=== PATIENT | female | born 1990 | race American Indian/Alaskan Native ===

== ENCOUNTER 2020-12-29 12:33 | Emergency (ER) | payer SELFPAY ==
[2020-12-29] MEDS ORDERED: NALOXONE 2 MG/2 ML INJ ONE (12:39)
[2020-12-29] MEDS ORDERED: NALOXONE 0.4 MG/1 ML INJ IV ONE (12:40)
[2020-12-29 13:03] LABS: Basophils % (Auto) 0.6 % (0.0-1.8); Eosinophils % (Auto) 0.6 % (0.0-4.3); Hematocrit 40.9 % (30.3-42.9); Hemoglobin 13.7 gm/dl (10.1-14.3); Lymphocytes # (Auto) 1.9 K/mm3 (1.2-5.4); Lymphocytes % (Auto) 32.4 % (13.4-35.0); Mean Corpuscular HGB Conc 34 % (30-34); Mean Corpuscular Volume 91 fl (79-97); Monocytes # (Auto) 0.4 K/mm3 (0.0-0.8); Monocytes % (Auto) 6.1 % (0.0-7.3); Platelet Count 214 K/mm3 (140-440); Red Cell Distribution Width 14.5 % (13.2-15.2)
--- NOTE | 2020-12-29 13:05 | Cat Scan Report ---
CT head/brain wo con INDICATION: CODE STROKE PLEASE CALL ER MAIN AT 6023 Stroke symptoms. TECHNIQUE: Routine CT head. All CT scans at this location are performed using CT dose reduction for A LOVELY by means of automated exposure control. COMPARISON: None. FINDINGS: Intracranial: Encinas-white matter differentiation is maintained. No intracranial hemorrhage. No extra a xial collection. No hydrocephalus. No herniation. Sinuses: Paranasal sinuses and mastoid air cells are essentially clear. Orbits: Globes are intact. Calvarium: No acute fracture. IMPRESSION: 1. No evidence of acute infarction. Signer Name: Jaleel Price MD Signed: 12/29/2020 1:01 PM Workstation Name: [id number]
--- NOTE | 2020-12-29 13:07 | Emergency Department Report ---
HPI - General Chief Complaint: Altered Mental Status Time Seen by Provider: 12/29/20 12:43 - HPI HPI: 30-year-old -Faroese female presents to the emergency department for evaluation of being unresponsive. The patient's brought her in and is currently at bedside. Apparently the patient left their home last night around 8 PM saying that she was going over to a family member's home. The spoke to the family member and the patient never arrived there. Later in the evening the patient called her saying that she was laying on the floor of the family van, but did not tell him where she actually was. was able to eventually locate her and the Van using GPS and found her sweating, unresponsive, on the floor of their van in [place]. He pulled her into his car and drove her to the emergency department. She was immediately brought back to room #19 for evaluation. The patient is arousable, but goes right back to sleep if not continuously stimulated. She is a poor historian. The patient had a normal Accu-Chek here and was given 2 mg of Narcan without any change. The patient's says that the patient does not have any past medical history. She recently celebrated her 30th birthday and appeared in good spirits. No history of depression. No history of illicit drug use. ED Past Medical Hx - Social History Smoking Status: Never Smoker Substance Use Type: None ED Review of Systems ROS: Stated complaint: SYNCOPE Other details as noted in HPI Comment: Unobtainable due to pts medical conditions Physical Exam - Physical Exam Vital Signs: Vital Signs 12/29/20 12:45 Temperature 98.6 F Pulse Rate 85 Respiratory 16 Rate Blood Pressure 154/86 [Right] O2 Sat by Pulse 98 Oximetry Physical Exam: GENERAL: The patient is well-developed well-nourished. HENT: Normocephalic. Atraumatic. Patient has moist mucous membranes. EYES: Pupils equal reactive to light bilaterally. NECK: Supple. Trachea is midline. CHEST/LUNGS: Clear to auscultation. There is no respiratory distress noted. HEART/CARDIOVASCULAR: Regular. There is no tachycardia. There is no murmur. ABDOMEN: Abdomen is soft, nontender. Patient has normal bowel sounds. There is no abdominal distention. SKIN: Skin is warm and dry. NEURO: The patient is sleepy but is arousable. Once awake the patient is oriented, AAO x3. She does right back to sleep if not continuously stimulated. The patient is not moving any of her extremities but unknown if this is a neurological deficit versus effort. MUSCULOSKELETAL: There is no tenderness or deformity. ED Course Vital Signs 12/29/20 12:45 Temperature 98.6 F Pulse Rate 85 Respiratory 16 Rate Blood Pressure 154/86 [Right] O2 Sat by Pulse 98 Oximetry - Reevaluation(s) Reevaluation #1: 12/29/20 13:06 The patient is arousable and was able to tell me that the year is 2020. She answers some questions. When I attempted to assess her for neurological deficits, the patient is not moving her extremities but saying that she is "trying" to do so. A code stroke has been initiated. - Consultations Consultation #1: 12/29/20 13:47 Patient was seen by the telemedicine neurologist, Dr. Montenegro. Her full recommendations will be listed in the chart under her consultation. She agrees with the plan for CT angiography of the head and neck. If a thrombus is found the patient will need to be transferred out for neurosurgical intervention. If no thrombus or significant stenosis found, the patient should be admitted for MRI and inpatient neurology work-up. ED Medical Decision Making - Lab Data Result diagrams: 12/29/20 12:47 12/29/20 12:47 Lab Results 12/29/20 12/29/20 12/29/20 Range/Units 12:43 12:47 12:47 WBC 6.0 (4.5-11.0) K/mm3 RBC 4.50 (3.65-5.03) M/mm3 Hgb 13.7 (10.1-14.3) gm/dl Hct 40.9 (30.3-42.9) % MCV 91 (79-97) fl MCH 31 (28-32) pg MCHC 34 (30-34) % RDW 14.5 (13.2-15.2) % Plt Count 214 (140-440) K/mm3 Lymph % (Auto) 32.4 (13.4-35.0) % Burnett % (Auto) 6.1 (0.0-7.3) % Eos % (Auto) 0.6 (0.0-4.3) % Baso % (Auto) 0.6 (0.0-1.8) % Lymph # (Auto) 1.9 (1.2-5.4) K/mm3 Burnett # (Auto) 0.4 (0.0-0.8) K/mm3 Eos # (Auto) 0.0 (0.0-0.4) K/mm3 Baso # (Auto) 0.0 (0.0-0.1) K/mm3 Seg Neutrophils % 60.3 (40.0-70.0) % Seg Neutrophils # 3.6 (1.8-7.7) K/mm3 PT 13.7 (12.2-14.9) Sec. INR 0.99 (0.87-1.13) APTT 28.7 (24.2-36.6) Sec. Thrombin Time 17.5 (15.1-19.6) Sec. Sodium (137-145) mmol/L Potassium (3.6-5.0) mmol/L Chloride (98-107) mmol/L Carbon Dioxide (22-30) mmol/L Anion Gap mmol/L BUN (7-17) mg/dL Creatinine (0.6-1.2) mg/dL Estimated GFR ml/min BUN/Creatinine Ratio % Glucose (65-100) mg/dL Calcium (8.4-10.2) mg/dL Total Bilirubin (0.1-1.2) mg/dL AST (5-40) units/L ALT (7-56) units/L Alkaline Phosphatase (35-129) units/L Total Creatine Kinase (30-135) units/L CK-MB (CK-2) (0.0-4.0) ng/mL CK-MB (CK-2) Rel Index (0-4) Troponin T (0.00-0.029) ng/mL Total Protein (6.3-8.2) g/dL Albumin (3.9-5) g/dL Albumin/Globulin Ratio % TSH (0.270-4.200) mlU/mL Urine Color Red (Yellow) Urine Turbidity Slightly-cloudy (Clear) Urine pH 6.0 (5.0-7.0) Ur Specific Mound 1.045 H (1.003-1.030) Urine Protein 100 mg/dl (Negative) mg/dL Urine Glucose (UA) Neg (Negative) mg/dL Urine Ketones 20 (Negative) mg/dL Urine Blood Lg (Negative) Urine Nitrite Neg (Negative) Urine Bilirubin Neg (Negative) Urine Urobilinogen < 2.0 (<2.0) mg/dL Ur Leukocyte Esterase Neg (Negative) Urine WBC (Auto) 0.0 (0.0-6.0) /HPF Urine RBC (Auto) > 182.0 (0.0-6.0) /HPF U Epithel Cells (Auto) 7.0 (0-13.0) /HPF Urine Mucus 2+ /HPF Urine HCG, Qual Negative (Negative) Plasma/Serum Alcohol (0-0.07) % 12/29/20 12/29/20 12/29/20 Range/Units 12:47 12:47 12:47 WBC (4.5-11.0) K/mm3 RBC (3.65-5.03) M/mm3 Hgb (10.1-14.3) gm/dl Hct (30.3-42.9) % MCV (79-97) fl MCH (28-32) pg MCHC (30-34) % RDW (13.2-15.2) % Plt Count (140-440) K/mm3 Lymph % (Auto) (13.4-35.0) % Burnett % (Auto) (0.0-7.3) % Eos % (Auto) (0.0-4.3) % Baso % (Auto) (0.0-1.8) % Lymph # (Auto) (1.2-5.4) K/mm3 Burnett # (Auto) (0.0-0.8) K/mm3 Eos # (Auto) (0.0-0.4) K/mm3 Baso # (Auto) (0.0-0.1) K/mm3 Seg Neutrophils % (40.0-70.0) % Seg Neutrophils # (1.8-7.7) K/mm3 PT (12.2-14.9) Sec. INR (0.87-1.13) APTT (24.2-36.6) Sec. Thrombin Time (15.1-19.6) Sec. Sodium 137 (137-145) mmol/L Potassium 3.8 (3.6-5.0) mmol/L Chloride 100.4 (98-107) mmol/L Carbon Dioxide 22 (22-30) mmol/L Anion Gap 18 mmol/L BUN 15 (7-17) mg/dL Creatinine 0.6 (0.6-1.2) mg/dL Estimated GFR > 60 ml/min BUN/Creatinine Ratio 25 % Glucose 68 (65-100) mg/dL Calcium 9.8 (8.4-10.2) mg/dL Total Bilirubin 0.70 (0.1-1.2) mg/dL AST 15 (5-40) units/L ALT 8 (7-56) units/L Alkaline Phosphatase 81 (35-129) units/L Total Creatine Kinase 54 (30-135) units/L CK-MB (CK-2) < 1.0 (0.0-4.0) ng/mL CK-MB (CK-2) Rel Index 1.8 (0-4) Troponin T < 0.010 (0.00-0.029) ng/mL Total Protein 8.0 (6.3-8.2) g/dL Albumin 4.5 (3.9-5) g/dL Albumin/Globulin Ratio 1.3 % TSH 0.448 (0.270-4.200) mlU/mL Urine Color (Yellow) Urine Turbidity (Clear) Urine pH (5.0-7.0) Ur Specific Mound (1.003-1.030) Urine Protein (Negative) mg/dL Urine Glucose (UA) (Negative) mg/dL Urine Ketones (Negative) mg/dL Urine Blood (Negative) Urine Nitrite (Negative) Urine Bilirubin (Negative) Urine Urobilinogen (<2.0) mg/dL Ur Leukocyte Esterase (Negative) Urine WBC (Auto) (0.0-6.0) /HPF Urine RBC (Auto) (0.0-6.0) /HPF U Epithel Cells (Auto) (0-13.0) /HPF Urine Mucus /HPF Urine HCG, Qual (Negative) Plasma/Serum Alcohol < 0.01 (0-0.07) % - Radiology Data Radiology results: report reviewed CT head/brain wo con INDICATION: CODE STROKE PLEASE CALL ER MAIN AT 8131 Stroke symptoms. TECHNIQUE: Routine CT head. All CT scans at this location are performed using CT dose reduction for ALARA by means of automated exposure c ontrol. COMPARISON: None. FINDINGS: Intracranial: Encinas-white matter differentiation is maintained. No intracranial hemorrhage. No extra axial collection. No hydrocephalus. No herniation. Sinuses: Paranasal sinuses and mastoid air cells are essentially clear. Orbits: Globes are intact. Calvarium: No acute fracture. IMPRESSION: 1. No evidence of acute infarction. CTA head with intravenous contrast CLINICAL HISTORY: Altered mental status. Evaluate for cerebrovascular accident. TECHNIQUE: 0.625 mm thick contiguous axial scans were obtained from the skull base to the skull vertex during rapid bolus administration of intravenous contrast material. Multiplanar jp nstructions were produced in the coronal and sagittal planes. In addition 3 plane MIP instructions were produced and reviewed for this report. The axial source images and reconstructed images were reviewed for this report. CONTRAST DOSE REPORT: Omnipaque 350: 100 ml administered intravenously. All CT scans at this location are performed using CT dose reduction for ALARA by means of automated exposure control. FINDINGS: Internal carotid arteries:Tammi, cavernous, opthalmic, clinoid and supraclinoid segments of the ICAs have an unremarkable appearance. Middle cerebral arteries:Normal and symmetrical M1 segments of the middle cerebral arteries are demonstrated. No abnormalities are seen on evaluation of the insular or opercular branches. Anterior cerebral arteries:Bilaterally symmetrical A1 segments are demonstrated. No abnormalities are seen along the course of the A2 segments or their visualized pericallosal branches. Vertebral arteries:Bilaterally symmetrical vertebral arteries are de monstrated. Both vertebral arteries contribute to the basilar artery origin. Basilar artery:Basilar artery has an unremarkable appearance. Posterior cerebral arteries:Bilaterally symmetrical posterior cerebral arteries are identified. Dural sinuses: Dural venous sinuses are well demonstrated on this exam. There is no evidence of dural sinus thrombosis. IMPRESSION: No significant abnormality on CTA head. CTA NECK WITH CONTRAST HISTORY: Change in mental status; Stroke COMPARISON: None. TECHNIQUE: Routine CTA of the neck was performed. 3-D/MIP reformats were postprocessed. Percentage stenosis is determined by direct quantitative measurements of diseased internal carotid artery diameter compared with normal distal internal carotid artery reference segments or by criteria similar to NASCET where applicable.All CT scans at this location are performed using CT dose reduction for ALARA by means of automated exposure control CONTRAST: 100 ml of Omnipaque 350 FINDINGS: Aortic arch: Not included in the [id number] Cervical vertebral arteries: No significant abnormality. Common carotid arteries: No significant abnormality. Carotid bifurcations: Normal Cervical internal carotid arteries: No significant abnormality. Additional findings: None. IMPRESSION: 1. No significant abnormality. - Medical Decision Making This patient presented to the emergency department after she was found unresponsive by her this morning. The patient later told me, just prior to discharge, that she had to "get away from my and children." The patient drove her family van to the parking lot of a hotel. She says that she was playing on her phone, doing social media, and fell asleep. When her found her she said that she had generalized weakness and he was able to transfer into his car and bring her to the emergency department for evaluation. Initially the patient appeared altered. She was extremely sleepy, but was arousable to verbal and tactile stimuli. Once awake, the patient was able to answer orientation questions appropriately, AAO x3. However, the patient goes right back to sleep if not continuously stimulated. She was given Narcan without any change. Accu-Chek was appropriate. While the patient was awake, the patient was evaluated for the NIH stroke scale. The patient either appeared to be unable to move her extremities, or would not put the effort in to move her extremities. Either way, a code stroke was initiated. The patient was outside of any TPA window. The patient was sent for a CT scan of the head without contrast that did not show any hemorrhage, large vessel occlusion, or any other acute process. After returning from CT scan, the patient was seen by the telemedicine neurologist, Dr. Montenegro, who requested CT angiography of the head and neck. CT angiography of the head and neck were performed and did not show any evidence of thrombus, stenosis, occlusion, or any other acute process. Patient's labs were unremarkable including CBC, metabolic panel, negative t roponin, normal thyroid function, negative blood alcohol level. Patient was reevaluated multiple times over multiple hours and has greatly improved. Patient says that she is thirsty and hungry. She was given a meal tray and water. She is seen sitting up, moving her extremities, conversing with her . At this point the patient is a 0 on the NIH stroke scale. Patient was able to get up out of the bed and ambulate around the emergency department and both appears and feels stable. The patient's presentation is atypical for, and did not appear consistent with, CVA. Even the telemedicine neurologist's consult stated that this does not appear to be neurological. For all these reasons the patient appears safe for discharge home at this time. She does not appear to have any life or limb threatening emergency that requires admission or intervention at this time. She has been instructed to follow-up with primary care and to return to the emergency department with any worsening of her symptoms or with any acute distress. Critical Care Time: No Critical care attestation.: If time is entered above; I have spent that time in minutes in the direct care of this critically ill patient, excluding procedure time. ED Disposition Clinical Impression: Unresponsive episode, Weakness, Dehydration Disposition: DC-01 TO HOME OR SELFCARE Is pt being admited?: No Condition: Stable Instructions: Weakness, Dehydration, Adult Additional Instructions: Please follow-up with a primary care physician in the next few days. I have given you a referral for a local primary care physician, Dr. Berry, and a primary care clinic, [facility]. Return to the emergency department with any return or worsening of your symptoms, new or concerning symptoms not addressed during this current emergency department visit, or with any acute distress. Referrals: AUBREY ALFREDO MD [Primary Care Provider] - 2-3 Days VOLODYMYR BERRY MD [Staff Physician] - 2-3 Days [facility] [Provider Group] - 2-3 Days Time of Disposition: 17:56
[2020-12-29 13:20] LABS: Alanine Aminotransferase 8 units/L (7-56); Albumin 4.5 g/dL (3.9-5); Blood Urea Nitrogen 15 mg/dL (7-17); Calcium 9.8 mg/dL (8.4-10.2); Hemolysis Index 6
[2020-12-29 13:23] LABS: BUN/Creatinine Ratio 25; Creatine Kinase MB < 1.0 ng/mL (0.0-4.0)
[2020-12-29 13:54] LABS: INR 0.99 (0.87-1.13)
[2020-12-29 13:55] LABS: Partial Thromboplastin Time 28.7 Sec. (24.2-36.6); Thrombin Time 17.5 Sec. (15.1-19.6)
--- NOTE | 2020-12-29 14:23 | Cat Scan Report ---
CTA NECK WITH CONTRAST HISTORY: Change in mental status; Stroke COMPARISON: None. TECHNIQUE: Routine CTA of the neck was performed. 3-D/MIP reformats were postprocessed. Percentage s tenosis is determined by direct quantitative measurements of diseased internal carotid artery diamete r compared with normal distal internal carotid artery reference segments or by criteria similar to NA SCET where applicable.All CT scans at this location are performed using CT dose reduction for ALARA b y means of automated exposure control CONTRAST: 100 ml of Omnipaque 350 FINDINGS: Aortic arch: Not included in the [id number] Cervical vertebral arteries: No significant abnormality. Common carotid arteries: No significant abnormality. Carotid bifurcations: Normal Cervical internal carotid arteries: No significant abnormality. Additional findings: None. IMPRESSION: 1. No significant abnormality. Signer Name: Cherelle Camacho MD Signed: 12/29/2020 2:19 PM Workstation Name: [id number]
--- NOTE | 2020-12-29 14:35 | Cat Scan Report ---
CTA head with intravenous contrast CLINICAL HISTORY: Altered mental status. Evaluate for cerebrovascular accident. TECHNIQUE: 0.625 mm thick contiguous axial scans were obtained from the skull base to the skull vertex during r apid bolus administration of intravenous contrast material. Multiplanar reconstructions were produced in the coronal and sagittal planes. In addition 3 plane MIP instructions were produced and reviewed for this report. The axial source images and reconstructed images were reviewed for this report. CONTRAST DOSE REPORT: Omnipaque 350: 100 ml administered intravenously. All CT scans at this location are performed using CT dose reduction for ALARA by means of automated e xposure control. FINDINGS: Internal carotid arteries:Tammi, cavernous, opthalmic, clinoid and supraclinoid segments of the ICAs have an unremarkable appearance. Middle cerebral arteries:Normal and symmetrical M1 segments of the middle cerebral arteries are demon strated. No abnormalities are seen on evaluation of the insular or opercular branches. Anterior cerebral arteries:Bilaterally symmetrical A1 segments are demonstrated. No abnormalities are seen along the course of the A2 segments or their visualized pericallosal branches. Vertebral arteries:Bilaterally symmetrical vertebral arteries are demonstrated. Both vertebral arteri es contribute to the basilar artery origin. Basilar artery:Basilar artery has an unremarkable appearance. Posterior cerebral arteries:Bilaterally symmetrical posterior cerebral arteries are identified. Dural sinuses: Dural venous sinuses are well demonstrated on this exam. There is no evidence of dural sinus thrombosis. IMPRESSION: No significant abnormality on CTA head. Signer Name: Julian Brumfield MD Signed: 12/29/2020 2:31 PM Workstation Name: [id number]
--- NOTE | 2020-12-29 15:04 | Emergency Department Report ---
Blank Doc - Documentation Documentation: [facility] Consult Note # Demographics Consult Type: Acute Stroke Level 2 (4.5-24 hrs) Patient Location: Emergency Room First Name: Arnulfo Last Name: Michael Date of : 1990 Age: 30 Gender: Female Time of Initial Page (Eastern Time): 12/29/2020, 12:47 Time of Return Call ( Time): 12/29/2020, 12:48 # HPI History: 30yo F presents after being out last night, supposed to have gone to a family members house but never arrived. family tracked the patietn down and was found in a car, hot and unresponsive. not following commands well in all 4 extremites. last well was 199912/28/20. Last Known Normal: I have collected independent history specific to time last normal or last known well. We have collaborated with the provider and at this time, we have the most current timeline with the information that is available. # Scores Time of exam and NIHSS ( Time): 12/29/2020, 13:37 Level of Consciousness 1a: [0] = Alert; keenly responsive LOC Questions 1b: [0] = Answers both questions correctly LOC Commands 1c: [0] = Performs both tasks correctly Best Gaze 2: [0] = Normal Visual 3: [0] = No visual loss Facial Palsy 4: [0] = Normal symmetrical movements Motor Arm Left 5a: [3] = No effort against gravity Motor Arm Right 5b: [3] = No effort against gravity Motor Leg Left 6a: [4] = No movement Motor Leg Right 6b: [4] = No movement Limb Ataxia 7: [0] = Absent Sensory 8: [0] = Normal Best Language 9: [0] = No aphasia Dysarthria 10: [0] = Normal Extinction and Inattention 11: [0] = No abnormality NIHSS Total: 14 # Exam Language: whispering but ot aphasic # Assessment Impression: generalized weakness with intact mental status. very unlikely to be from a brain problem. # Plan Thrombolytic/Intervention: NOT IV Thrombolytic or IA Intervention Thrombolytic/Intraarterial Exclusion: IV thrombolytic and IA intervention considered but not recommended as this patient's symptoms are not clinically consistent with an assumed diagnosis of stroke Imaging: (urgency: STAT): CT Angiogram Head and CT Angiogram Neck AND call back with results if abnormal Imaging: (urgency: routine): MRI Brain with AND without contrast MRI C spine Other: I have discussed my recommendations with the referring provider # Logistics Telemedicine: Interactive 2 way audio and visual telecommunication technology was utilized during this visit
[2020-12-29 15:24] LABS: Bilirubin,Urine NEG (Negative); Blood,Urine LG (Negative); Color,Urine Red (Yellow); Mucus,Urine 2+ /HPF; Urobilinogen,Urine < 2.0 mg/dL (<2.0)
[2020-12-29 15:26] LABS: RBC,Urine > 182.0 /HPF (0.0-6.0)
[2020-12-29 15:36] LABS: HCG Qualitative,Urine Negative (Negative)
[2020-12-29 18:08] VITALS: BP 145/100
== END 2020-12-29 18:02 | disposition home or self-care (01) ==
LOC: ED 12:33
DX: E86.0 Dehydration (principal); R40.4 Transient alteration of awareness; Z88.5 Allergy status to narcotic agent; Z91.040 Latex allergy status; Z79.899 Other long term (current) drug therapy; R79.1 Abnormal coagulation profile
CPT/HCPCS: 36415; 70450; 70496; 70498; 80053; 81001; 81025; 82550; 82553; 84443; 84484; 85025; 85610; 85670; 85730; 96374; 99284; J2310; Q9967; 80320; G0480